=== PATIENT | female | born 1960 | race Caucasian/White ===

== ENCOUNTER 2016-09-20 18:29 | Emergency (ER) | payer BC ==
[~2016-09-20] VITALS: Ht 170.2 cm; Wt 65.8 kg
[2016-09-20 18:46] VITALS: BP_SYST 133
--- NOTE | 2016-09-20 19:06 | NUR ---
Patient to [facility] for evaluation. Side rails up. Report given to Felicity QUIGLEY.
--- NOTE | 2016-09-20 19:14 | NUR ---
Patient to ER C/O right upper arm and forearm pain. States that she has chronic pain in the right arm from previous injuries but today she fell and re-injured the right arm. States 10/10 pain when moving the arm. No bruising, no deformity, cap refill & pulses equal bilateral. No signs of acute distress.
--- NOTE | 2016-09-20 19:27 | NUR ---
ER CHRISTIANO Escobar at bedside for evaluation
[2016-09-20] MEDS ORDERED: IBUPROFEN 800 MG TABLET PO ONE (19:45)
--- NOTE | 2016-09-20 20:15 | NUR ---
Right arm sugar tongue splint applied. +2 pulse noted. Capillary refill <3 seconds. Patient has ability to move non-splinted digits. Has sensation present to affected site. Skin color within normal limits. Applied for pain management control.
--- NOTE | 2016-09-20 20:19 | NUR ---
Right shoulder sling applied
[2016-09-20 20:45] VITALS: BP_SYST 124
--- NOTE | 2016-09-20 20:45 | NUR ---
Patient given written and verbal discharge instructions and verbalizes understanding. ER BOAT DECKHAND Luz discussed with patient the results and treatment provided. Patient in stable condition. ID arm band removed. IV catheter removed intact and dressing applied, no active bleeding. Rx of motrin & tylenol/codeine given. Patient educated on pain management and to follow up with PMD. Pain Scale 0/10. Opportunity for questions provided and answered.
--- NOTE | 2016-09-21 13:43 | NUR ---
RECEIVED FINAL REPORT DISCREPENCY, DR LIMA SPOKE TO PT IN [facility]. NO FURTHER ACTIONS NEEDED.
== END 2016-09-20 20:45 | disposition home or self-care (01) ==
LOC: SED 18:29
DX: S52.101A Unspecified fracture of upper end of right radius, initial encounter for closed fracture (principal); W01.0XXA Fall on same level from slipping, tripping and stumbling without subsequent striking against object, initial encounter; Y93.89 Activity, other specified; Y99.8 Other external cause status; Y92.000 Kitchen of unspecified non-institutional (private) residence as the place of occurrence of the external cause
CPT/HCPCS: 73090; 99284